=== PATIENT | female | born 1980 | race Caucasian/White ===

== ENCOUNTER 2018-03-23 16:55 | Emergency (ER) | payer SELFPAY ==
[~2018-03-23] VITALS: Ht 160 cm; Wt 105.9 kg
--- NOTE | 2018-03-23 17:29 | NUR ---
Assumed care of patient. C/O N/V and left flank pain. Patient menstruating. Straight cath UA sent to lab. at bedside. Will continue to monitor.
[2018-03-23] MEDS ORDERED: SODIUM CHLORIDE FLUSH 10ML SYR IVF ONE (17:30)
[2018-03-23 17:51] LABS: ALANINE AMINOTRANSFERASE 36 U/L (12-78); ALBUMIN 3.8 g/dL (3.4-5.0); ANION GAP 7 mmol/L (5-15); BASOPHILS # (AUTO) 0.03 x10^3/uL (0-0.1); BASOPHILS % (AUTO) 0 % (0-1); CALCIUM 8.7 mg/dL (8.5-10.1); CHLORIDE 108 mmol/L (98-107); EOSINOPHILS # (AUTO) 0.07 x10^3/uL (0-0.4); EOSINOPHILS % (AUTO) 1 % (1-7); LYMPHOCYTES # (AUTO) 1.46 x10^3/uL (1-3.4); LYMPHOCYTES % (AUTO) 13 % (22-44); MD NO; MEAN CORPUSCULAR HEMOGLOBIN 28.3 pg (27.0-34.8); MEAN CORPUSCULAR HGB CONC 33.3 g/dL (32.4-35.8); MEAN CORPUSCULAR VOLUME 85.1 fL (80-100); MEAN PLATELET VOLUME 8.2 fL (7.4-10.4); MONOCYTES # (AUTO) 0.53 x10^3/uL (0.2-0.8); MONOCYTES % (AUTO) 5 % (2-9); NEUTROPHILS # (AUTO) 9.09 x10^3/uL (1.8-6.8); NEUTROPHILS % (AUTO) 81 % (42-75); PLATELET COUNT 314 x10^3/uL (130-400); RED CELL DISTRIBUTION WIDTH 12.4 % (9.6-15.2)
[2018-03-23 17:51] LABS: MICROSCOPIC INDICATED
[2018-03-23 17:55] LABS: ALKALINE PHOSPHATASE 64 U/L (45-117); BILIRUBIN,TOTAL 0.7 mg/dL (0.2-1.0); TOTAL PROTEIN 7.8 g/dL (6.4-8.2)
--- NOTE | 2018-03-23 18:06 | NUR ---
Patient to CT.
[2018-03-23 18:08] LABS: CULTURE INDICATED? NO
[2018-03-23] MEDS ORDERED: ONDANSETRON ODT 4 MG ONE (19:19)
--- NOTE | 2018-03-23 19:21 | NUR ---
[facility] admin. No other needs.
[2018-03-23] MEDS ORDERED: ONDANSETRON ODT 4 MG PO ONE (19:30)
[2018-03-23] MEDS ORDERED: OMNIPAQUE 350 MG/ML, 100ML BOTTLE ONE (20:17)
--- NOTE | 2018-03-23 20:21 | NUR ---
Patient back from CT.
[2018-03-23 20:53] VITALS: BP 125/74
--- NOTE | 2018-03-23 20:53 | NUR ---
Patient/Caregiver given discharge instructions and they have confirmed that they understand the instructions. Patient ambulatory with steady gait.
== END 2018-03-23 20:54 | disposition home or self-care (01) ==
LOC: ED 18:37
DX: E86.0 Dehydration (principal); R11.2 Nausea with vomiting, unspecified; R10.12 Left upper quadrant pain
CPT/HCPCS: 36415; 71275; 74176; 80053; 81001; 84703; 85025; 85379; 99284; Q0162; Q9967

== ENCOUNTER 2019-10-02 19:32 | Observation (INO) | payer BC, OTHER ==
[~2019-10-02] VITALS: Ht 160 cm; Wt 110.0 kg
--- NOTE | 2019-10-02 20:26 | NUR ---
first pt contact assumed care at this time.
[2019-10-02] MEDS ORDERED: ONDANSETRON 2MG/ML, 2ML ONE (20:53)
[2019-10-02] MEDS ORDERED: KETOROLAC 30 MG/1 ML ONE (20:53)
--- NOTE | 2019-10-02 20:58 | NUR ---
PT MEDICATED PER ORDER.
[2019-10-02] MEDS ORDERED: KETOROLAC 30 MG/1 ML IVPush ONE (21:00)
[2019-10-02] MEDS ORDERED: ONDANSETRON 2MG/ML, 2ML IVPush ONE (21:00)
[2019-10-02 21:03] LABS: BASOPHILS # (AUTO) 0.02 x10^3/uL (0-0.1); BASOPHILS % (AUTO) 0 % (0-1); EOSINOPHILS % (AUTO) 3 % (1-7); LYMPHOCYTES # (AUTO) 1.81 x10^3/uL (1-3.4); LYMPHOCYTES % (AUTO) 23 % (22-44); MD NO; MEAN CORPUSCULAR HEMOGLOBIN 29.3 pg (27.0-34.8); MEAN CORPUSCULAR HGB CONC 33.8 g/dL (32.4-35.8); MEAN CORPUSCULAR VOLUME 86.5 fL (80-100); MEAN PLATELET VOLUME 8.5 fL (7.4-10.4); MONOCYTES # (AUTO) 0.43 x10^3/uL (0.2-0.8); MONOCYTES % (AUTO) 5 % (2-9); NEUTROPHILS % (AUTO) 69 % (42-75); PLATELET COUNT 277 x10^3/uL (130-400); RED BLOOD COUNT 5.01 x10^6/uL (3.82-5.3); RED CELL DISTRIBUTION WIDTH 12.7 % (9.6-15.2)
[2019-10-02 21:11] LABS: ALANINE AMINOTRANSFERASE 71 U/L (12-78); ALBUMIN 3.8 g/dL (3.4-5.0); ANION GAP 6 mmol/L (5-15); CALCIUM 8.9 mg/dL (8.5-10.1); CHLORIDE 107 mmol/L (98-107); CREATININE 0.92 mg/dL (0.55-1.02)
[2019-10-02 21:16] LABS: ALKALINE PHOSPHATASE 57 U/L (45-117); BILIRUBIN,TOTAL 0.5 mg/dL (0.2-1.0); TOTAL PROTEIN 7.5 g/dL (6.4-8.2)
--- NOTE | 2019-10-02 21:58 | NUR ---
REPORT FROM ARLEY SANDOVAL.
[2019-10-02] MEDS ORDERED: MORPHINE SULFATE 4 MG/ML, 1ML ONE (22:28)
[2019-10-02] MEDS ORDERED: MORPHINE SULFATE 4 MG/ML, 1ML IVPush ONE (22:30)
--- NOTE | 2019-10-02 22:38 | NUR ---
PAIN MEDICATIONS GIVEN. PATIENT TOLERATED WELL. LEAKING FROM IV SITE, IV SITE RE-DRESSED. PATIENT TOLERATED WELL. AT BEDSIDE WITH PATIENT. NO ADDITIONAL NEEDS NOTED.
--- NOTE | 2019-10-02 23:03 | NUR ---
PATIENT STATED THAT HER PAIN HAS IMPROVED. NO FURTHER NOTED NEEDS AT THIS TIME. UPDATED ON PLAN OF CARE. NO NOTED ACUTE DISTRESS. WILL CONTINUE TO MONITOR.
--- NOTE | 2019-10-02 23:47 | NUR ---
PATIENT AND UPDATED ON PLAN OF CARE. NO NOTED FURTHER NEEDS AT THIS TIME. VITAL SIGNS STABLE. WILL CONTINUE TO MONITOR.
--- NOTE | 2019-10-03 00:01 | NUR ---
GYNOCOLOGY AT BEDSIDE WITH PATIENT.
[2019-10-03] MEDS ORDERED: MORPHINE SULFATE 4 MG/ML, 1ML ONE ×2 (00:29→03:28)
[2019-10-03] MEDS ORDERED: MORPHINE SULFATE 4 MG/ML, 1ML IVPush ONE (00:30)
--- NOTE | 2019-10-03 00:43 | NUR ---
PATIENT GIVEN PAIN MEDICATIONS, TOLERATED WELL. VITAL SIGNS UPDATED ON PATIENT. PATIENT DENIES ANY FURTHER NEEDS AT THIS TIME. WILL CONTINUE TO MONITOR.
[2019-10-03] MEDS ORDERED: morphine SULFATE 10 MG/ML, 1ML IVPush PRN ×2 (02:00→04:30)
[2019-10-03 03:32] VITALS: BP 142/67
[2019-10-03] MEDS ORDERED: METHYLERGONOVINE 0.2 MG/ML IM ONE (03:41)
[2019-10-03] MEDS ORDERED: MISOPROSTOL 200 MCG TABLET ONE (03:41)
[2019-10-03] MEDS ORDERED: OXYTOCIN 10 UNITS/ML, 1ML ONE (03:41)
--- NOTE | 2019-10-03 03:50 | NUR ---
PATIENT TAKEN TO SURGERY VIA SURGERY RN. PATIENT UPDATED ON PLAN OF CARE. NO NOTED NEEDS AT THIS TIME. WITH PATIENT TO PRE-OP.
[2019-10-03 04:08] LABS: BASOPHILS # (AUTO) 0.02 x10^3/uL (0-0.1); BASOPHILS % (AUTO) 0 % (0-1); EOSINOPHILS # (AUTO) 0.15 x10^3/uL (0-0.4); EOSINOPHILS % (AUTO) 2 % (1-7); LYMPHOCYTES # (AUTO) 2.02 x10^3/uL (1-3.4); LYMPHOCYTES % (AUTO) 25 % (22-44); MD NO; MEAN CORPUSCULAR HGB CONC 33.6 g/dL (32.4-35.8); MEAN CORPUSCULAR VOLUME 86.3 fL (80-100); MEAN PLATELET VOLUME 8.4 fL (7.4-10.4); MONOCYTES # (AUTO) 0.54 x10^3/uL (0.2-0.8); MONOCYTES % (AUTO) 7 % (2-9); NEUTROPHILS # (AUTO) 5.27 x10^3/uL (1.8-6.8); NEUTROPHILS % (AUTO) 66 % (42-75); PLATELET COUNT 245 x10^3/uL (130-400); RED CELL DISTRIBUTION WIDTH 12.4 % (9.6-15.2)
[2019-10-03] MEDS ORDERED: MIDAZOLAM 1 MG/ML, 2ML ONE (04:10)
[2019-10-03] MEDS ORDERED: FENTANYL PF 100 MCG/2ML ONE (04:10)
[2019-10-03] MEDS ORDERED: BUPIVACAINE/PF-EPI 0.25% 1:200K ONE (04:18)
[2019-10-03] MEDS ORDERED: DEXAMETHASONE 4 MG/ML, 1ML ONE (04:20)
[2019-10-03] MEDS ORDERED: PROPOFOL 10 MG/ML, 20ML ONE (04:20)
[2019-10-03] MEDS ORDERED: ONDANSETRON 2MG/ML, 2ML ONE (04:20)
[2019-10-03] MEDS ORDERED: PROMETHAZINE 25 MG/ML, 1ML IVPush PRN (04:30)
[2019-10-03] MEDS ORDERED: MEPERIDINE/PF 25MG/0.5ML IVPush PRN (04:30)
[2019-10-03] MEDS ORDERED: OXYcodone 5 MG/5 ML ORAL.SOL UDC PO PRN (04:30)
[2019-10-03] MEDS ORDERED: ACETAMINOPHEN 325 MG TABLET PO PRN (04:30)
[2019-10-03] MEDS ORDERED: FENTANYL PF 100 MCG/2ML IV PRN ×2 (04:30→08:00)
[2019-10-03] MEDS ORDERED: BUPIVACAINE/PF-EPI 0.25% 1:200K INFIL ONE (04:42)
[2019-10-03] MEDS ORDERED: PROMETHAZINE 25 MG SUPP PR ONE (07:45)
[2019-10-03] MEDS ORDERED: ONDANSETRON 2MG/ML, 2ML IV PRN (08:00)
[2019-10-03] MEDS ORDERED: KETOROLAC 30 MG/1 ML IV PRN (08:00)
[2019-10-03] MEDS ORDERED: [UNRECOGNIZED DRUG - REMARK] MC SCH (08:00)
[2019-10-03] MEDS ORDERED: HYDROcodone/APAP 7.5-325MG/15ML UDC PO PRN (08:00)
== END 2019-10-03 10:15 | disposition home or self-care (01) ==
LOC: ED 22:21 → INTOOBSV 10-03 04:04 → EDIP 10-03 04:04 → 4NE 10-03 05:50
PROVIDERS: ADMIT Obstetrics & Gynecology; ATTEND Obstetrics & Gynecology
DX: N92.1 Excessive and frequent menstruation with irregular cycle (principal); N85.2 Hypertrophy of uterus; N83.201 Unspecified ovarian cyst, right side; E78.00 Pure hypercholesterolemia, unspecified; E03.9 Hypothyroidism, unspecified; N85.7 Hematometra
CPT/HCPCS: 36415; 58120; 76830; 80053; 84703; 85025; 86850; 86900; 88305; 93005; 96374; 96375; 96376; 99285; G0378; J1100; J1885; J2250; J2270; J2405; J2704; J3010; J2210; J2590